=== PATIENT | male | born 1975 | race Caucasian/White ===

== ENCOUNTER 2018-04-03 11:45 | Emergency (ER) | payer OTHER ==
[2018-04-03 14:06] LABS: Hematocrit 41 % (42-52); Hemoglobin 14.3 g/dl (14.0-18.0); Mean Corpuscular HGB Conc 35 g/dl (31-36); Mean Corpuscular Hemoglobin 30 pg (27-31); Mean Corpuscular Volume 87 fL (80-94); Mean Platelet Volume 7.6 um3 (7.4-10.4); Platelet Count 195 10^3/ul (150-450); Red Blood Count 4.78 10^6/ul (4.0-5.4); Red Cell Distribution Width 13 % (10.5-15); White Blood Count 6.5 10^3/ul (3.5-10.8)
[2018-04-03 14:20] LABS: EGFR Non-African American 90.2 (>60)
--- NOTE | 2018-04-03 15:45 | RAD ---
INDICATION: Jaundice COMPARISON: None TECHNIQUE: Longitudinal and transverse scans of the right upper quadrant were obtained. Doppler interrogation of the hepatic and portal venous system was performed. FINDINGS: Liver: The liver is normal in size and echogenicity. There are no focal masses. The liver measures 18.1 cm in cephalocaudal dimension. Vessels: There is normal hepatic and portal venous flow. Bile ducts: There is no evidence of intrahepatic or extrahepatic ductal dilatation. The common duct measures 0.5 cm. Gallbladder: The sonographic appearance of the gallbladder is normal. There is no evidence of cholelithiasis, thickening of the gallbladder wall, or pericholecystic fluid. Pancreas: Not visualized due to interfering bowel gas Right kidney: The right kidney is normal in size and echogenicity. There are no masses or calculi. There is no evidence of hydronephrosis. The right kidney measures 10.3 x 4.8 x 5.1 cm. IVC and aorta: The aorta and superior vena cava appear normal. Fluid: There is no ascites. Other: None. IMPRESSION: NEGATIVE GALLBLADDER. NONVISUALIZATION OF THE PANCREAS DUE TO BOWEL GAS
[2018-04-03 16:13] VITALS: BP 122/74
--- NOTE | 2018-04-03 18:55 | ED ---
Lb Onofre Jennifer, scribed for Joe Elias MD on 04/03/18 at 1542 . Complex/Multi-Sys Presentation - HPI Summary HPI Summary: The patient is a 42 year old male presenting to the ED with elevated liver enzyme levels and to rule out liver failure. The patient was recently transferred from [facility] three days ago. He has a history of six right hip surgeries and has been on prophylactic Levaquin. The patient denies abdominal pain, chest pain, and any other pain. - History Of Current Complaint Chief Complaint: EDGeneral Time Seen by Provider: 04/03/18 13:57 Hx Obtained From: Patient Onset/Duration: Sudden Onset, Still Present Timing: Constant Severity Currently: None Severity Initially: Mild Location: Negative - Denies any pain Associated Signs And Symptoms: Positive: Other - elevated liver enzyme levels, hx right hip surgeries. NEG: abdominal pain, chest pain, all pain - Allergies/Home Medications Allergies/Adverse Reactions: Allergies Allergy/AdvReac Type Severity Reaction Status Date / Time azithromycin Allergy Unknown Verified 04/03/18 11:53 Reaction Details Home Medications: Home Medications Levofloxacin TAB* [Levaquin TAB*] 250 mg PO DAILY 04/03/18 [History Confirmed ] PMH/Surg Hx/FS Hx/Imm Hx Endocrine/Hematology History: Denies: Hx Diabetes Cardiovascular History: Denies: Hx Hypertension - Surgical History Surgery Procedure, Year, and Place: 6 hip replacements - right Infectious Disease History: Yes Infectious Disease History: Reports: Hx Hepatitis - Hep C, Hx of Known/ Suspected MRSA Denies: Traveled Outside the [place] in Last 30 Days - Family History Known Family History: Negative: Respiratory Disease - Social History Alcohol Use: None Alcohol Amount: hx of abuse Hx Substance Use: Yes Substance Use Type: Reports: Cocaine Substance Use Comment - Amount & Last Used: hx of abuse Smoking Status (MU): Former Smoker Review of Systems Negative: Fever, Chills Negative: Erythema Negative: Sore Throat Negative: Chest Pain Negative: Shortness Of Breath, Cough Gastrointestinal: Other - Elevated liver enzyme levels Negative: Abdominal Pain, Vomiting, Nausea Negative: dysuria, hematuria Negative: Myalgia, Edema Negative: Rash Neurological: Negative - Dizziness All Other Systems Reviewed And Are Negative: Yes Physical Exam - Summary Physical Exam Summary: Constitutional: Well-developed, Well-nourished, Alert. (-) Distressed Skin: Warm, Dry HENT: Normocephalic; Atraumatic Eyes: Conjunctiva normal Neck: Musculoskeletal ROM normal neck. (-) JVD, (-) Stridor, (-) Tracheal deviation Cardio: Rhythm regular, rate normal, Heart sounds normal; Intact distal pulses; The pedal pulses are 2+ and symmetric. Radial pulses are 2+ and symmetric. (-) Murmur Pulmonary/Chest wall: Effort normal. (-) Respiratory distress, (-) Wheezes, (-) Rales Abd: Soft, (-) Tenderness, (-) Distension, (-) Guarding, (-) Rebound Musculoskeletal: (-) Edema Lymph: (-) Cervical adenopathy Neuro: Alert, Oriented x3 Psych: Mood and affect Normal Triage Information Reviewed: Yes Vital Signs On Initial Exam: Initial Vitals Temp Pulse Resp BP Pulse Ox 97.7 F 63 16 138/73 100 04/03/18 11:53 04/03/18 11:53 04/03/18 11:53 04/03/18 11:53 04/03/18 11:53 Vital Signs Reviewed: Yes Diagnostics - Vital Signs Vital Signs Temp Pulse Resp BP Pulse Ox 04/03/18 11:53 97.7 F 63 16 138/73 100 - Laboratory Lab Results: Lab Results 04/03/18 04/03/18 Range/Units 13:42 13:42 WBC 6.5 (3.5-10.8) 10^3/ul RBC 4.78 (4.0-5.4) 10^6/ul Hgb 14.3 (14.0-18.0) g/dl Hct 41 L (42-52) % MCV 87 (80-94) fL MCH 30 (27-31) pg MCHC 35 (31-36) g/dl RDW 13 (10.5-15) % Plt Count 195 (150-450) 10^3/ul MPV 7.6 (7.4-10.4) um3 Sodium 140 (139-145) mmol/L Potassium 4.3 (3.5-5.0) mmol/L Chloride 105 (101-111) mmol/L Carbon Dioxide 30 (22-32) mmol/L Anion Gap 5 (2-11) mmol/L BUN 14 (6-24) mg/dL Creatinine 0.92 (0.67-1.17) mg/dL Est GFR ( Amer) 116.0 (>60) Est GFR (Non-Af Amer) 90.2 (>60) BUN/Creatinine Ratio 15.2 (8-20) Glucose 87 (70-100) mg/dL Calcium 8.8 (8.6-10.3) mg/dL Total Bilirubin 1.70 H (0.2-1.0) mg/dL AST 58 H (13-39) U/L ALT 100 H (7-52) U/L Alkaline Phosphatase 66 (34-104) U/L Total Protein 6.7 (6.4-8.9) g/dL Albumin 4.1 (3.2-5.2) g/dL Globulin 2.6 (2-4) g/dL Albumin/Globulin Ratio 1.6 (1-3) Result Diagrams: 04/03/18 13:42 04/03/18 13:42 Lab Statement: Any lab studies that have been ordered have been reviewed, and results considered in the medical decision making process. - Additional Comments Diagnostic Additional Comments: Gallbladder US. Interpreted by a radiologist. IMPRESSION: NEGATIVE GALLBLADDER. NONVISUALIZATION OF THE PANCREAS DUE TO BOWEL GAS. Dr. Elias has reviewed this report. Complex Multi-Symp Course/Dx Course Of Treatment: The patient is a 42 year old male presenting to the ED with elevated liver enzyme levels and to rule out liver failure. Bloodwork was obtained. Gallbladder US was negative. The patient was diagnosed with elevated liver enzyme. Levaquin is known to elevate liver enzyme. No sign of hepatic failure. We will discontinue Levaquin. Patient should follow up with 1) [facility], 2) Dr. Gonzalez, infectious disease on-call physician, and Dr. Delgado, GI, in 5-7 days. - Diagnoses Provider Diagnoses: Elevated liver enzymes Discharge - Sign-Out/Discharge Documenting (check all that apply): Discharge/Admit/Transfer - Discharge Plan Condition: Stable Disposition: HOME Referrals: Adwoa Stewart [Primary Care Provider] - Hannah EVANS,Dixon Zhao [Medical Doctor] - Stephen Delgado MD [Medical Doctor] - Additional Instructions: Please follow up with 1) [facility], 2) Dr. Gonzalez, infectious disease, and 3) Dr. Delgado, gastroenterology, in 5-7 days. The documentation as recorded by the Lb jensen Jennifer accurately reflects the service I personally performed and the decisions made by me, Joe Elias MD.
== END 2018-04-03 16:11 | disposition home or self-care (01) ==
LOC: ED 11:45
DX: R94.5 Abnormal results of liver function studies (principal); Z87.891 Personal history of nicotine dependence
CPT/HCPCS: 36415; 76705; 80053; 80074; 85027; 99282